=== PATIENT | male | born 1950 | race Caucasian/White ===

== ENCOUNTER 2022-10-01 03:34 | Outpatient (CLI) | payer OTHER, SELFPAY ==
[2022-10-01] MEDS: Inhaler, Assist Device 1 EACH MC (15:54)
[2022-10-01] MEDS: Albuterol HFA 18 GM 200 PUFF INH IH (15:54)
--- NOTE | 2022-10-02 07:17 | W.PFT ---
Date of service: 10/01/22 Time of Service: 14:53 Pulmonary Function Test Result Requesting Provider Ester Collins Indications: Dyspnea Interpretation Spirometry: There is moderate airflow limitation. There is a significant bronchodilator response. Lung Volumes: Normal lung volumes Diffusion Capacity: Reduced diffusion. Airway Pressure: Normal airways resistance. Impression Moderate airflow obstruction with a bronchodilator response and low diffusion. In the correct clinical context with could represent COPD with emphysema or Asthma-COPD overlap syndrome. Clinical Correlation therefore is recommended.
== END 2022-10-01 03:35 | disposition home or self-care (01) ==
PROVIDERS: Visit Provider Physician Assistant
DX: R94.2 Abnormal results of pulmonary function studies (principal); R06.09 Other forms of dyspnea; Z87.891 Personal history of nicotine dependence
CPT/HCPCS: 94060; 94726; 94729